=== PATIENT | male | born 1985 | race Caucasian/White ===

== ENCOUNTER 2016-12-22 22:04 | Emergency (ER) | payer SELFPAY ==
[~2016-12-22] VITALS: Ht 185.4 cm; Wt 74.8 kg
[2016-12-23] MEDS ORDERED: LORAZEPAM 0.5 MG TABLET PO ONE (01:00)
[2016-12-23] MEDS ORDERED: LORAZEPAM 1 MG TABLET ONE (01:03)
[2016-12-23 01:21] VITALS: BP 123/64
== END 2016-12-23 01:21 | disposition home or self-care (01) ==
LOC: ER 22:06
DX: F41.9 Anxiety disorder, unspecified (principal); F32.9 Major depressive disorder, single episode, unspecified; F31.9 Bipolar disorder, unspecified
CPT/HCPCS: 99284; A4606; Z7610